=== PATIENT | female | born 1970 | race American Indian/Alaskan Native ===

== ENCOUNTER 2021-10-21 17:49 | Emergency (ER) | payer SELFPAY ==
[2021-10-21] MEDS ORDERED: HYDROmorphone 1 MG/1 ML INJ IM ONE (18:40)
[2021-10-21] MEDS ORDERED: dexAMETHasone 4 MG/ML VIAL IM ONE (18:40)
--- NOTE | 2021-10-21 19:58 | Emergency Department Report ---
ED Back Pain/Injury HPI - General Chief Complaint: Back Pain/Injury Stated Complaint: BACK PAIN/CHRONIC Time Seen by Provider: 10/21/21 18:38 Source: EMS Limitations: Physical Limitation - History of Present Illness Initial Comments: back pain for roselia last 2 days , recurrent, history of the same, no falls, came from work pain going down to her riht leg MD Complaint: back pain -: Gradual, days(s) Similar Symptoms Previously: Yes Place: work Radiation: right leg Severity: moderate Severity scale (0 -10): 5 Quality: aching Consistency: constant Improves With: none Associated Symptoms: denies: denies other symptoms, confusion, chest pain, numbness, diaphoresis, incontinence, fever/chills, constipation, headaches - Related Data Allergies Allergy/AdvReac Type Severity Reaction Status Date / Time No Known Allergies Allergy Unverified 10/21/21 18:06 ED Review of Systems ROS: Stated complaint: BACK PAIN/CHRONIC Other details as noted in HPI Constitutional: denies: chills, fever Eyes: denies: eye pain, eye discharge, vision change ENT: denies: ear pain, throat pain Respiratory: denies: cough, shortness of breath, wheezing Cardiovascular: denies: chest pain, palpitations Endocrine: no symptoms reported Gastrointestinal: denies: abdominal pain, nausea, diarrhea Genitourinary: denies: urgency, dysuria, discharge Musculoskeletal: denies: back pain, joint swelling, arthralgia Skin: denies: rash, lesions Neurological: denies: headache, weakness, paresthesias Psychiatric: denies: anxiety, depression Hematological/Lymphatic: denies: easy bleeding, easy bruising ED Past Medical Hx - Past Medical History Previous Medical History?: Yes Hx CVA: Yes (Mild stroke in 2016) - Surgical History Past Surgical History?: Yes Additional Surgical History: Hysterectomy and fibroid removal - Social History Smoking Status: Never Smoker Substance Use Type: Alcohol ED Physical Exam - General Limitations: Language Barrier, Physical Limitation General appearance: alert, in no apparent distress - Head Head exam: Present: atraumatic - Eye Eye exam: Present: normal appearance - ENT ENT exam: Present: mucous membranes moist - Neck Neck exam: Present: normal inspection - Respiratory Respiratory exam: Present: normal lung sounds bilaterally. Absent: respiratory distress - Cardiovascular Cardiovascular Exam: Present: regular rate, normal rhythm. Absent: systolic murmur, diastolic murmur, rubs, gallop - GI/Abdominal GI/Abdominal exam: Present: soft, normal bowel sounds - Extremities Exam Extremities exam: Present: normal inspection - Back Exam Back exam: Present: tenderness, muscle spasm - Neurological Exam Neurological exam: Present: alert, oriented X3 - Psychiatric Psychiatric exam: Present: normal affect, normal mood - Skin Skin exam: Present: warm, dry, intact, normal color. Absent: rash ED Course Vital Signs 10/21/21 10/21/21 10/21/21 18:00 19:01 19:08 Temperature 98.4 F 99.1 F Pulse Rate 87 77 Respiratory 16 15 Rate Blood Pressure Blood Pressure 109/66 115/81 [Left] O2 Sat by Pulse 98 98 99 Oximetry 10/21/21 10/21/21 19:10 19:15 Temperature Pulse Rate Respiratory 16 Rate Blood Pressure 115/81 Blood Pressure [Left] O2 Sat by Pulse 98 Oximetry Critical care attestation.: If time is entered above; I have spent that time in minutes in the direct care of this critically ill patient, excluding procedure time. ED Disposition Clinical Impression: Back pain, Sciatica Disposition: 01 HOME / SELF CARE / HOMELESS Is pt being admited?: No Does the pt Need Aspirin: No Condition: Stable Instructions: Chronic Back Pain, [id number]
[2021-10-21 21:19] VITALS: BP 121/82
== END 2021-10-21 21:36 | disposition home or self-care (01) ==
LOC: ED 17:49
DX: M54.30 Sciatica, unspecified side (principal); Z86.73 Personal history of transient ischemic attack (TIA), and cerebral infarction without residual deficits
CPT/HCPCS: 96372; 99283; J1100; J1170

== ENCOUNTER 2022-01-17 09:49 | Emergency (ER) | payer SELFPAY ==
[2022-01-17 10:56] LABS: Basophils # (Auto) 0.1 K/mm3 (0.0-0.1); Basophils % (Auto) 0.7 % (0.0-1.8); Eosinophils % (Auto) 0.4 % (0.0-4.3); Hematocrit 43.3 % (30.3-42.9); Lymphocytes # (Auto) 1.6 K/mm3 (1.2-5.4); Lymphocytes % (Auto) 14.6 % (13.4-35.0); Mean Corpuscular HGB Conc 32 % (30-34); Mean Corpuscular Volume 90 fl (79-97); Monocytes # (Auto) 0.6 K/mm3 (0.0-0.8); Monocytes % (Auto) 5.6 % (0.0-7.3); Platelet Count 377 K/mm3 (140-440); Red Cell Distribution Width 12.9 % (13.2-15.2)
[2022-01-17 11:23] LABS: Alanine Aminotransferase 15 units/L (7-56); Albumin 4.4 g/dL (3.9-5); Blood Urea Nitrogen 10 mg/dL (7-17); Calcium 9.7 mg/dL (8.4-10.2); Hemolysis Index 20
[2022-01-17 11:29] LABS: Hyaline Casts,Urine 1 /LPF; Mucus,Urine 2+ /HPF
[2022-01-17 11:37] LABS: BUN/Creatinine Ratio 14
[2022-01-17 11:48] LABS: Bilirubin,Urine Negative (Negative); Blood,Urine Negative (Negative); Color,Urine Straw (Yellow); Protein,Urine <30 mg dL mg/dL (Negative); Urobilinogen,Urine < 2.0 mg/dL (<2.0)
[2022-01-17] MEDS ORDERED: ALUM-MAG HYDROXIDE-SIMETHICONE 200-200-20MG/5ML ORAL LIQD 30 ML PO ONE (12:23)
[2022-01-17] MEDS ORDERED: LIDOCAINE VISCOUS 2% 15 ML ORAL LIQD PO ONE (12:23)
--- NOTE | 2022-01-17 12:37 | Emergency Department Report ---
ED Abdominal Pain HPI - General Chief Complaint: Abdominal Pain Stated Complaint: STOMACH/CHEST PAIN Source: patient Mode of arrival: Ambulatory Limitations: No Limitations - History of Present Illness Initial Comments: 51-year-old female presents to the ED complaining of abdominal pain x 1 days. Patient state drink alcohol daily. Patient stated she has a history of GERD reflux. Stated she is taking [id number] omeprazole without relief. Patient states that she drink daily. Patient states she had a mild TIA in 2005. Patient denies any chest pain shortness of breath at present time. Patient is alert and oriented x3. No acute distress noted no ill-appearing noted. MD Complaint: abdominal pain -: This morning Location: diffuse Radiation: none Severity scale (0 -10): 0 Consistency: intermittent Improves With: nothing Worsens With: nothing - Related Data Previous Rx's Medication Instructions Recorded Last Taken Type Cyclobenzaprine HCl [Flexeril 5 MG 5 mg PO TID #14 tab 10/21/21 Unknown Rx TAB] Pantoprazole Sodium [Protonix] 40 mg PO DAILY 30 Days #30 tab 01/17/22 Unknown Rx Allergies Allergy/AdvReac Type Severity Reaction Status Date / Time No Known Allergies Allergy Unverified 10/21/21 18:06 ED Review of Systems ROS: Stated complaint: STOMACH/CHEST PAIN Other details as noted in HPI Constitutional: denies: chills, fever Eyes: denies: eye pain, eye discharge, vision change ENT: denies: ear pain, throat pain Respiratory: denies: cough, shortness of breath, wheezing Cardiovascular: denies: chest pain, palpitations Endocrine: no symptoms reported Gastrointestinal: denies: abdominal pain, nausea, diarrhea Genitourinary: denies: urgency, dysuria, discharge Musculoskeletal: denies: back pain, joint swelling, arthralgia Skin: denies: rash, lesions Neurological: denies: headache, weakness, paresthesias Psychiatric: denies: anxiety, depression Hematological/Lymphatic: denies: easy bleeding, easy bruising ED Past Medical Hx - Past Medical History Hx CVA: Yes (Mild stroke in 2016) - Surgical History Additional Surgical History: Hysterectomy and fibroid removal - Social History Smoking Status: Never Smoker Substance Use Type: Alcohol - Medications Home Medications: Home Medications Medication Instructions Recorded Confirmed Last Taken Type Cyclobenzaprine HCl [Flexeril 5 MG 5 mg PO TID #14 tab 10/21/21 Unknown Rx TAB] Pantoprazole Sodium [Protonix] 40 mg PO DAILY 30 Days #30 tab 01/17/22 Unknown Rx ED Physical Exam - General Limitations: No Limitations General appearance: alert, in no apparent distress - Head Head exam: Present: atraumatic, normocephalic - Eye Eye exam: Present: normal appearance - ENT ENT exam: Present: mucous membranes moist - Neck Neck exam: Present: normal inspection - Respiratory Respiratory exam: Present: normal lung sounds bilaterally. Absent: respiratory distress - Cardiovascular Cardiovascular Exam: Present: regular rate, normal rhythm. Absent: systolic murmur, diastolic murmur, rubs, gallop - GI/Abdominal GI/Abdominal exam: Present: soft, normal bowel sounds - Extremities Exam Extremities exam: Present: normal inspection - Back Exam Back exam: Present: normal inspection - Neurological Exam Neurological exam: Present: alert, oriented X3 - Psychiatric Psychiatric exam: Present: normal affect, normal mood - Skin Skin exam: Present: warm, dry, intact, normal color. Absent: rash ED Course Vital Signs 01/17/22 09:58 Temperature 98 F Pulse Rate 84 Respiratory 18 Rate Blood Pressure 115/81 [Left] O2 Sat by Pulse 99 Oximetry ED Medical Decision Making - Lab Data Result diagrams: 01/17/22 10:20 01/17/22 10:20 - Medical Decision Making 51-year-old female presents to the ED complaining of abdominal pain x 1 days. Patient state drink alcohol daily. Patient stated she has a history of GERD reflux. Stated she is taking [id number] omeprazole without relief. Patient states that she drink daily. Patient states she had a mild TIA in 2005. Patient denies any chest pain shortness of breath at present time. Patient is alert and oriented x3. No acute distress noted no ill-appearing noted. Physical examination is unremarkable. Rechecked the patient is resting quietly , comfortable and feeling better. I discussed the results of diagnostic study, my clinical impression and the plan for further treatment with the patient. Patient agrees with plan and discharge at this present time. All question addressed. I have given the patient instruction regarding a diagnosis ,expectation ,follow- up and return precaution. I explained to the patient that emergent condition may arise and to return to the ED for new worsen and any new persisting condition. I have explained the importance of following up with the primary care physician or referral physician listed below has instructed. The patient verbalized understanding of discharge instruction. Critical care attestation.: If time is entered above; I have spent that time in minutes in the direct care of this critically ill patient, excluding procedure time. ED Disposition Clinical Impression: Abdominal pain Qualifiers: Abdominal location: generalized Qualified Code(s): R10.84 - Generalized ab dominal pain Disposition: 01 HOME / SELF CARE / HOMELESS Is pt being admited?: No Does the pt Need Aspirin: No Condition: Stable Instructions: Abdominal Pain, Adult, [id number], Abdominal Pain (ED) Additional Instructions: Keep taking omeprazole [id number] Return to ED for any worsening symptom Prescriptions: Pantoprazole Sodium [Protonix] 40 mg PO DAILY 30 Days #30 tab Referrals: PRIMARY CARE, [Primary Care Provider] - 3-5 Days [facility] [Provider Group] - 3-5 Days Forms: Work/School Release Form(ED) Time of Disposition: 13:04
[2022-01-17 13:44] VITALS: BP 118/62
== END 2022-01-17 13:47 | disposition home or self-care (01) ==
LOC: ED 09:49
DX: R10.9 Unspecified abdominal pain (principal); Z86.73 Personal history of transient ischemic attack (TIA), and cerebral infarction without residual deficits
CPT/HCPCS: 36415; 80053; 81001; 83690; 85025; 99283